=== PATIENT | female | born 1950 | race Hispanic/Latino ===

== ENCOUNTER 2020-09-28 07:30 | Day surgery (SDC) | payer OTHER ==
[~2020-09-28] VITALS: Ht 152.4 cm; Wt 51.3 kg
[2020-09-28] VITALS (16 sets, daily range): BP systolic 132–196; BP diastolic 65–91
[~2020-09-28 07:30] MED LIST: 0.9%NACL 1000ML 1,000 ML IV ONE; ASPI-1197 PO; ATOR20TA65 PO; BIOT10004 PO; CALC1TAB3 PO; INDOMETHACIN 50 MG SUPP.RECT RC SCH; L.AC1CAP6 PO; LEVO100C4 PO; MILK500C PO; VITA1CAP PO
[2020-09-28] MEDS ORDERED: FENTANYL CITRATE PF 50 MCG/1 ML 2ML VIAL ONE (09:25)
[2020-09-28] MEDS ORDERED: PROPOFOL 10 MG/ML 20ML VIAL IV ONE ×2 (09:25→10:20)
[2020-09-28] MEDS ORDERED: SUCCINYLCHOLINE 200MG/10ML SYR ONE (09:25)
[2020-09-28] MEDS ORDERED: LIDOCAINE HCL 400MG/20ML VIAL ONE (09:25)
[2020-09-28] MEDS ORDERED: IOHEXOL-350 50ML VIAL IV ONE (09:28)
[2020-09-28] MEDS ORDERED: ESMOLOL HCL 10 MG/ML 10 ML VIAL ONE (09:36)
[2020-09-28] MEDS ORDERED: PHENYLEPHRINE HCL 10 MG/ML 1ML VIAL IV ONE (10:00)
[2020-09-28] MEDS ORDERED: HYDRALAZINE 20MG/ML VIAL ONE (10:36)
== END 2020-09-28 12:30 | disposition home or self-care (01) ==
LOC: DAH 07:30 → ENDO 07:30
PROVIDERS: ATTEND Internal Medicine Gastroenterology
DX: K80.50 Calculus of bile duct without cholangitis or cholecystitis without obstruction (principal); Z20.822 Contact with and (suspected) exposure to COVID-19; E11.9 Type 2 diabetes mellitus without complications; E03.9 Hypothyroidism, unspecified; K76.0 Fatty (change of) liver, not elsewhere classified; Z80.0 Family history of malignant neoplasm of digestive organs; Z90.49 Acquired absence of other specified parts of digestive tract; Z79.899 Other long term (current) drug therapy; Z79.82 Long term (current) use of aspirin; Z98.890 Other specified postprocedural states
CPT/HCPCS: 43262; 43264; 74328; 82948 ×2; 87635; A4215; A4221; A4222; A4223; A4606; A4657; A4663; C1769; C9803; J0330; J0360; J2370; J2704 ×2; J3010; J3490 ×2; J7030; Q9967; 74330